=== PATIENT | male | born 1955 | race African-American/Black ===

== ENCOUNTER 2016-02-24 18:54 | Emergency (ER) | payer OTHER ==
[~2016-02-24] VITALS: Ht 180.3 cm; Wt 105.7 kg
[~2016-02-24 18:54] MED LIST: ALBU8.5H2 IH; HYDR-429 PO; HYDR12.55 PO; LISI10TA5 PO; QUET200T PO; QUET400T PO; TEMA15CA PO
[2016-02-24 19:13] LABS: BASOPHILS # (AUTO) 0.1 /CMM (0.0-0.2); BASOPHILS % (AUTO) 1.2 % (0.0-2.0); DIFF TOTAL % 100 %; EOSINOPHILS # (AUTO) 0.2 /CMM (0.0-0.7); EOSINOPHILS % (AUTO) 2.4 % (0.0-6.0); HEMATOCRIT 41 % (39-51); HEMOGLOBIN 13.3 g/dL (13.5-17.5); LYMPHOCYTES # (AUTO) 2.1 /CMM (0.8-4.8); LYMPHOCYTES % (AUTO) 21.2 % (20.0-44.0); MEAN CORPUSCULAR HEMOGLOBIN 27 PG (26.0-33.0); MEAN CORPUSCULAR HGB CONC 32 g/dl (31.0-36.0); MEAN CORPUSCULAR VOLUME 84 fL (80-96); MONOCYTES # (AUTO) 1.3 /CMM (0.1-1.30); MONOCYTES % (AUTO) 13.2 % (2.0-12.0); NEUTROPHILS # (AUTO) 6.4 /CMM (1.8-8.9); PLATELET COUNT (AUTO) 231 /CMM (150-450); WHITE BLOOD COUNT (AUTO) 10.1 K/uL (4.3-11.0)
[2016-02-24] MEDS ORDERED: ALBUTEROL FS 2.5 MG/0.5 ML VIAL.NEB ONE ×2 (19:14→21:10)
[2016-02-24] MEDS ORDERED: IPRATROPIUM NEB FS 0.5 MG/2.5 ML AMPUL.NEB ONE (19:14)
[2016-02-24 19:25] LABS: ANION GAP 11 (5-14); CALCIUM, SERUM 9.6 mg/dL (8.5-10.1); CARBON DIOXIDE 28 mmol/L (21-32); CHLORIDE 98 mmol/L (98-107); CREATININE 1.4 mg/dL (0.6-1.3); GFR 62 mL/min (>60); GLUCOSE 101 mg/dL (74-106); POTASSIUM 3.9 mmol/L (3.5-5.1); SODIUM SERUM 133 mmol/L (136-145); UREA NITROGEN, BLOOD 16 mg/dL (7-18)
[2016-02-24] MEDS ORDERED: predniSONE 20 MG TABLET ONE (19:25)
[2016-02-24 19:28] LABS: INR 0.99 (0.87-1.13); PROTHROMBIN TIME 10.4 SECS (9.5-12.7)
[2016-02-24] MEDS ORDERED: predniSONE 20 MG TABLET PO ONE (19:30)
[2016-02-24] MEDS ORDERED: IPRATROPIUM NEB FS 0.5 MG/2.5 ML AMPUL.NEB NEB ONE (19:30)
[2016-02-24] MEDS ORDERED: ALBUTEROL FS 2.5 MG/0.5 ML VIAL.NEB NEB ONE ×2 (19:30→21:30)
[2016-02-24 19:35] LABS: TROPONIN I < 0.017 ng/mL (0.00-0.056)
[2016-02-24 22:07] VITALS: BP 147/90
== END 2016-02-24 22:08 | disposition home or self-care (01) ==
LOC: ER 18:55
DX: J44.1 Chronic obstructive pulmonary disease with (acute) exacerbation (principal); I10 Essential (primary) hypertension; I25.2 Old myocardial infarction; Z88.6 Allergy status to analgesic agent; F17.210 Nicotine dependence, cigarettes, uncomplicated; F32.9 Major depressive disorder, single episode, unspecified
CPT/HCPCS: 36415; 71010; 80048; 83880; 84484; 85025; 85730; 93005; 94640 ×2; 99285; A4606; J7512; Z7610

== ENCOUNTER 2016-04-11 19:12 | Inpatient (IN) | payer OTHER ==
[~2016-04-11] VITALS: Ht 180.3 cm; Wt 104.8 kg
[~2016-04-11 19:12] MED LIST changes: -HYDR-429 PO; +HYDR-548 PO
[2016-04-11 19:55] LABS: BASOPHILS # (AUTO) 0.1 /CMM (0.0-0.2); BASOPHILS % (AUTO) 1.5 % (0.0-2.0); DIFF TOTAL % 100 %; EOSINOPHILS # (AUTO) 0.2 /CMM (0.0-0.7); EOSINOPHILS % (AUTO) 3.7 % (0.0-6.0); HEMATOCRIT 44 % (39-51); HEMOGLOBIN 13.9 g/dL (13.5-17.5); LYMPHOCYTES # (AUTO) 2.3 /CMM (0.8-4.8); LYMPHOCYTES % (AUTO) 43.3 % (20.0-44.0); MEAN CORPUSCULAR HEMOGLOBIN 27 PG (26.0-33.0); MEAN CORPUSCULAR HGB CONC 32 g/dl (31.0-36.0); MEAN CORPUSCULAR VOLUME 87 fL (80-96); MONOCYTES # (AUTO) 0.9 /CMM (0.1-1.30); MONOCYTES % (AUTO) 17.8 % (2.0-12.0); NEUTROPHILS # (AUTO) 1.8 /CMM (1.8-8.9); NEUTROPHILS % (AUTO) 33.7 % (43.0-81.0); PLATELET COUNT (AUTO) 233 /CMM (150-450); RED BLOOD CELL COUNT(AUTO) 5.08 MIL/uL (4.5-6.0); WHITE BLOOD COUNT (AUTO) 5.3 K/uL (4.3-11.0)
[2016-04-11] MEDS ORDERED: ALBUTEROL FS 2.5 MG/0.5 ML VIAL.NEB NEB ONE (20:00)
[2016-04-11] MEDS ORDERED: ALBUTEROL FS 2.5 MG/0.5 ML VIAL.NEB ONE (20:02)
[2016-04-11 20:12] LABS: ALANINE AMINOTRANSFERASE 26 U/L (12-78); ALBUMIN 3.1 g/dL (3.4-5.0); ANION GAP 10 (5-14); ASPARTATE AMINOTRANSFERASE 14 U/L (15-37); BILIRUBIN,TOTAL 0.2 mg/dL (0.2-1.0); CALCIUM, SERUM 8.5 mg/dL (8.5-10.1); CARBON DIOXIDE 30 mmol/L (21-32); CHLORIDE 101 mmol/L (98-107); CREATININE 1.2 mg/dL (0.6-1.3); GFR 74 mL/min (>60); GLUCOSE 92 mg/dL (74-106); POTASSIUM 3.7 mmol/L (3.5-5.1); SODIUM SERUM 137 mmol/L (136-145); TOTAL PROTEIN, SERUM 6.9 g/dL (6.4-8.2); UREA NITROGEN, BLOOD 15 mg/dL (7-18)
[2016-04-11 20:13] LABS: TROPONIN I < 0.017 ng/mL (0.00-0.056)
[2016-04-11 20:14] LABS: INDIRECT BILIRUBIN 0.2 mg/dL (0.0-1.1)
[2016-04-11 20:19] LABS: INR 0.95 (0.87-1.13)
[2016-04-11] MEDS ORDERED: MORPHINE SULFATE INJ 2 MG/ML DISP.SYRIN ONE (20:56)
[2016-04-11] MEDS ORDERED: MORPHINE SULFATE INJ 2 MG/ML DISP.SYRIN IV ONE (21:30)
[2016-04-11 22:00] VITALS: BP 125/79
[2016-04-11] MEDS ORDERED: ENOXAPARIN SODIUM 40 MG/0.4 ML DISP.SYRIN SQ SCH (22:00)
[2016-04-11] MEDS ORDERED: MAGNESIUM HYDROXIDE 30 ML UDC PO PRN (22:00)
[2016-04-11] MEDS ORDERED: MAG HYDROX/AL HYDROX/SIMETH 30 ML UDC PO PRN (22:00)
[2016-04-11] MEDS ORDERED: ACETAMINOPHEN 325 MG TABLET PO PRN (22:00)
[2016-04-11] MEDS ORDERED: Z GUARD REMEDY 2 OZ OINT TP PRN (22:00)
[2016-04-11] MEDS ORDERED: ONDANSETRON HCL/PF 4 MG/2 ML VIAL IVP PRN (22:00)
[2016-04-11] MEDS ORDERED: ENOXAPARIN SODIUM 40 MG/0.4 ML DISP.SYRIN SQ ONE (22:42)
[2016-04-12] VITALS (7 sets, daily range): BP systolic 125–144; BP diastolic 61–81
[2016-04-12] MEDS ORDERED: TEMAZEPAM 15 MG CAPSULE PO PRN (01:00)
[2016-04-12] MEDS ORDERED: ALBUTEROL SULFATE 8 GM HFA.AER.AD IH PRN (01:00)
[2016-04-12] MEDS: HYDROCODONE/APAP 5/325MG 1 EACH TABLET PO PRN ×2 (07:46→18:43)
[2016-04-12 07:50] LABS: BASOPHILS % (AUTO) 0.5 % (0.0-2.0); DIFF TOTAL % 100 %; EOSINOPHILS # (AUTO) 0.2 /CMM (0.0-0.7); EOSINOPHILS % (AUTO) 2.5 % (0.0-6.0); HEMATOCRIT 43 % (39-51); HEMOGLOBIN 13.9 g/dL (13.5-17.5); LYMPHOCYTES # (AUTO) 2.5 /CMM (0.8-4.8); LYMPHOCYTES % (AUTO) 33.4 % (20.0-44.0); MEAN CORPUSCULAR HEMOGLOBIN 28 PG (26.0-33.0); MEAN CORPUSCULAR HGB CONC 33 g/dl (31.0-36.0); MEAN CORPUSCULAR VOLUME 87 fL (80-96); MONOCYTES # (AUTO) 1.1 /CMM (0.1-1.30); MONOCYTES % (AUTO) 14.2 % (2.0-12.0); NEUTROPHILS # (AUTO) 3.7 /CMM (1.8-8.9); NEUTROPHILS % (AUTO) 49.4 % (43.0-81.0); PLATELET COUNT (AUTO) 223 /CMM (150-450); WHITE BLOOD COUNT (AUTO) 7.5 K/uL (4.3-11.0)
[2016-04-12 08:00] LABS: ALBUMIN 3.2 g/dL (3.4-5.0); BILIRUBIN,DIRECT 0.1 mg/dL (0.0-0.2); BILIRUBIN,TOTAL 0.3 mg/dL (0.2-1.0); CALCIUM, SERUM 8.2 mg/dL (8.5-10.1); CREATININE 1.3 mg/dL (0.6-1.3); INDIRECT BILIRUBIN 0.2 mg/dL (0.0-1.1); POTASSIUM 3.8 mmol/L (3.5-5.1); TOTAL PROTEIN, SERUM 6.9 g/dL (6.4-8.2)
[2016-04-12 08:08] LABS: THYROID STIMULATING HORMONE 0.781 uIU/mL (0.358-3.74)
[2016-04-12] MEDS ORDERED: REGADENOSON 0.4 MG/5 ML DISP.SYRIN IVP ONE (09:00)
[2016-04-12] MEDS: LISINOPRIL (10MG) 10 MG TABLET PO SCH (09:00)
[2016-04-12] MEDS ORDERED: ASPIRIN 81 MG TAB.CHEW PO SCH (09:00)
[2016-04-12] MEDS: MORPHINE SULFATE INJ 2 MG/ML DISP.SYRIN IV PRN ×2 (10:43→20:07)
[2016-04-12 12:09] LABS: EOSINOPHILS % (MANUAL) 6 % (0-4); LYMPHOCYTES % (MANUAL) 42 % (16-48); PLATELET ESTIMATE ADEQUATE
[2016-04-12] MEDS: Magnesium 1GM/D5W 100ML PREMIX 100 ML IV SCH ×2 (14:00→14:37)
[2016-04-12] MEDS: QUETIAPINE FUMARATE 100 MG TABLET PO SCH ×2 (14:37→17:36)
[2016-04-12] MEDS: HYDROCHLOROTHIAZIDE 25 MG TABLET PO SCH (14:37)
[2016-04-12] MEDS ORDERED: ENOXAPARIN SODIUM 40 MG/0.4 ML DISP.SYRIN SQ SCH (21:00)
[2016-04-12] MEDS ORDERED: QUETIAPINE FUMARATE 100 MG TABLET PO SCH (22:00)
[2016-04-13] MEDS: MORPHINE SULFATE INJ 2 MG/ML DISP.SYRIN IV PRN (06:50)
[2016-04-13 07:10] LABS: CALCIUM, SERUM 8.5 mg/dL (8.5-10.1); CREATININE 1.2 mg/dL (0.6-1.3); POTASSIUM 4.2 mmol/L (3.5-5.1)
[2016-04-13 08:00] VITALS: BP 121/85
[2016-04-13] MEDS: QUETIAPINE FUMARATE 100 MG TABLET PO SCH (08:59)
[2016-04-13] MEDS: LISINOPRIL (10MG) 10 MG TABLET PO SCH (08:59)
[2016-04-13] MEDS: HYDROCHLOROTHIAZIDE 25 MG TABLET PO SCH (09:00)
[2016-04-13 11:51] VITALS: BP 121/85
== END 2016-04-13 11:50 | DRG 203 ==
LOC: ER 19:13 → TELE 21:24 → MED 04-12 10:05
PROVIDERS: ADMIT Contractor; ATTEND Contractor
DX: M94.0 Chondrocostal junction syndrome [Tietze] (principal); I24.9 Acute ischemic heart disease, unspecified; I11.0 Hypertensive heart disease with heart failure; I50.32 Chronic diastolic (congestive) heart failure; F41.9 Anxiety disorder, unspecified; E44.1 Mild protein-calorie malnutrition; E83.42 Hypomagnesemia; I25.10 Atherosclerotic heart disease of native coronary artery without angina pectoris; Z95.5 Presence of coronary angioplasty implant and graft; E78.5 Hyperlipidemia, unspecified; I25.2 Old myocardial infarction; J44.9 Chronic obstructive pulmonary disease, unspecified; K21.9 Gastro-esophageal reflux disease without esophagitis; F32.9 Major depressive disorder, single episode, unspecified; F17.210 Nicotine dependence, cigarettes, uncomplicated; E11.9 Type 2 diabetes mellitus without complications
CPT/HCPCS: 36415; 71010-TC; 72020-TC; 80048-TC; 80061-TC; 80076-TC; 83735-TC; 84100-TC; 84443-TC; 84484-TC; 85025-TC; 85730-TC; 87081-TC; 93307-TC; A4606; A9502; J1650; J2270; J2785; J3475; Z7610

== ENCOUNTER 2016-10-24 22:45 | Inpatient (IN) | payer OTHER ==
[~2016-10-24] VITALS: Ht 180.3 cm; Wt 82.1 kg
--- NOTE | 2016-10-24 22:50 | NUR ---
61 YO BB RA FROM HOME. PT IS ALERT X 3, C/O SOB, GRADUAL ONSET ALL DAY. PT ASSISTED TO ER BED, SKIN WARM AND DRY, RR EVEN AND UNLABORED. PT GOWNED, PLACED ON PRISM INSPECTOR. NOTED WHEEZING ALL LOBES, TRIPODING. PT AWAITING ORDERS FROM PROVIDER
[2016-10-24] MEDS ORDERED: DEXAMETHASONE SOD PHOSPHATE 10 MG/ML VIAL ONE (22:52)
[2016-10-24] MEDS ORDERED: IPRATROPIUM NEB FS 0.5 MG/2.5 ML AMPUL.NEB ONE (22:54)
[2016-10-24] MEDS ORDERED: ALBUTEROL FS 2.5 MG/3 ML VIAL.NEB ONE (22:54)
--- NOTE | 2016-10-24 22:55 | NUR ---
STARTED BRETHING TREATMENT PER VERBAL ORDER MD FINK; 5MG ALBUTEROL, 0.5MG ATROVENT NEB
[2016-10-24] MEDS ORDERED: Magnesium 1GM/D5W 100ML PREMIX 200 ML IV ONE (22:58)
[2016-10-24] MEDS ORDERED: IPRATROPIUM NEB FS 0.5 MG/2.5 ML AMPUL.NEB NEB ONE (23:00)
[2016-10-24] MEDS ORDERED: ALBUTEROL FS 2.5 MG/3 ML VIAL.NEB NEB ONE (23:00)
[2016-10-24] MEDS ORDERED: DEXAMETHASONE SOD PHOSPHATE 10 MG/ML VIAL IV ONE (23:00)
[2016-10-24] MEDS ORDERED: Magnesium 1 GM/2 ML VIAL IV ONE (23:00)
--- NOTE | 2016-10-24 23:09 | NUR ---
BIPAP STARTED ORDERED; 15/5, 60%
--- NOTE | 2016-10-24 23:09 | NUR ---
MEDICATED PT ORDERED
[2016-10-24 23:13] LABS: BASOPHILS % (AUTO) 0.4 % (0.0-2.0); EOSINOPHILS # (AUTO) 0.2 /CMM (0.0-0.7); EOSINOPHILS % (AUTO) 2.9 % (0.0-6.0); HEMATOCRIT 43 % (39-51); LYMPHOCYTES # (AUTO) 2.8 /CMM (0.8-4.8); LYMPHOCYTES % (AUTO) 35.3 % (20.0-44.0); MEAN CORPUSCULAR HEMOGLOBIN 29 PG (26.0-33.0); MEAN CORPUSCULAR HGB CONC 33 g/dl (31.0-36.0); MEAN CORPUSCULAR VOLUME 88 fL (80-96); MONOCYTES # (AUTO) 0.9 /CMM (0.1-1.30); MONOCYTES % (AUTO) 11.9 % (2.0-12.0); NEUTROPHILS # (AUTO) 3.9 /CMM (1.8-8.9); NEUTROPHILS % (AUTO) 49.5 % (43.0-81.0); PLATELET COUNT (AUTO) 195 /CMM (150-450); RDW COEFFICIENT OF VARIATION 15.9 (11.5-15.0); RED BLOOD CELL COUNT(AUTO) 4.84 MIL/uL (4.5-6.0); WHITE BLOOD COUNT (AUTO) 7.9 K/uL (4.3-11.0)
[2016-10-24 23:18] VITALS: BP 128/81
[2016-10-24 23:25] LABS: CALCIUM, SERUM 8.3 mg/dL (8.5-10.1); CREATININE 1.1 mg/dL (0.6-1.3); POTASSIUM 3.7 mmol/L (3.5-5.1)
--- NOTE | 2016-10-24 23:31 | NUR ---
PT STATES HE FEEL BETTER AFTER BREATHING TREATMENT AND BIPAP. MD NOTIFIED
[2016-10-24 23:33] LABS: TROPONIN I 0.044 ng/mL (0.00-0.056)
--- NOTE | 2016-10-24 23:49 | NUR ---
VITAL SIGNS UPDATED.
[2016-10-25] VITALS (7 sets, daily range): BP systolic 108–137; BP diastolic 70–98
[2016-10-25] MEDS ORDERED: DOXYCYCLINE 100 MG VIAL ONE (00:25)
[2016-10-25] MEDS ORDERED: CLOPIDOGREL BISULFATE 75 MG TABLET ONE (00:25)
[2016-10-25] MEDS ORDERED: ONDANSETRON HCL/PF 4 MG/2 ML VIAL IVP PRN (00:30)
[2016-10-25] MEDS ORDERED: CLOPIDOGREL BISULFATE 75 MG TABLET PO ONE (00:30)
[2016-10-25] MEDS ORDERED: DOXYCYCLINE 100 MG in IV D5W 100 ML IV ONE (00:30)
[2016-10-25] MEDS ORDERED: LEVOFLOXACIN 750 MG /D5W 150ML 750 MG in PREMIX 1 EA IV SCH (00:30)
[2016-10-25] MEDS ORDERED: ACETAMINOPHEN 325 MG TABLET PO PRN (00:30)
--- NOTE | 2016-10-25 00:38 | NUR ---
medicated pt as ordered
--- NOTE | 2016-10-25 01:25 | NUR ---
transported pt to jennie bed without incident
--- NOTE | 2016-10-25 01:45 | NUR ---
HEAVY REPAIRER INITIAL NOTE RECEIVED PT FROM [facility] NURSE. ADMITTED TO ICU A RYAN OVERFLOW WITH A DX OF COPD EXACERBATION. PT IN BED. A/A/O X4. PT IS AMBULATORY TO BED. LUNG SOUNDS CLEAR, WITH 2L NC. ORIGINALLY ON BIPAP IN ER BUT WAS ABLE TO TOLERATE RA AFTER TREATMENTS PER ER NURSE. IV PATENT AND INTACT. CONTINENT TO URINE AND STOOL. SKIN INTACT. BED IN LOW LOCKED POSITION. CALL LIGHT WITHIN REACH. WILL CONTINUE TO MONITOR.
[2016-10-25] MEDS ORDERED: GUAIFENESIN LA 600 MG TABLET.SA PO ONE (02:03)
[2016-10-25] MEDS ORDERED: methylPREDNISolone SOD SUCC 40 MG/ML VIAL ONE (02:04)
[2016-10-25] MEDS ORDERED: LEVOFLOXACIN 750 MG /D5W 150ML 150 ML IV ONE (02:05)
[2016-10-25] MEDS ORDERED: ALBUTEROL FS 2.5 MG/0.5 ML VIAL.NEB ONE (02:08)
[2016-10-25] MEDS ORDERED: IPRATROPIUM NEB FS 0.5 MG/2.5 ML AMPUL.NEB ONE (02:09)
[2016-10-25] MEDS: IPRATROPIUM NEB FS 0.5 MG/2.5 ML AMPUL.NEB NEB SCH ×4 (02:10→19:51)
[2016-10-25] MEDS: ALBUTEROL FS 2.5 MG/0.5 ML VIAL.NEB NEB SCH ×4 (02:10→19:51)
[2016-10-25] MEDS: methylPREDNISolone SOD SUCC 125 MG/2ML VIAL IV SCH ×2 (02:21→09:02)
[2016-10-25] MEDS: GUAIFENESIN LA 600 MG TABLET.SA PO SCH ×3 (02:21→21:57)
[2016-10-25] MEDS ORDERED: HYDROCODONE/APAP 10/325MG 1 EA TABLET ONE (03:02)
[2016-10-25] MEDS: HYDROCODONE/APAP 10/325MG 1 EA TABLET PO PRN ×3 (03:03→18:13)
--- NOTE | 2016-10-25 06:20 | NUR ---
CONCRETE CRUSHER LOADER OPERATOR REPORT GIVEN TO NAYA GOMEZ FOR CONTINUITY OF CARE. PT STABLE FOR TRANSPORT. TRANSPORTED BY PASCUAL MENDIETA RN.
[2016-10-25] MEDS: HYDROCHLOROTHIAZIDE 25 MG TABLET PO SCH (09:07)
[2016-10-25] MEDS: LISINOPRIL (10MG) 10 MG TABLET PO SCH (09:08)
[2016-10-25] MEDS: QUETIAPINE FUMARATE 100 MG TABLET PO SCH ×2 (09:12→17:01)
[2016-10-25] MEDS ORDERED: LORAZEPAM 0.5 MG TABLET PO PRN (13:30)
[2016-10-25] MEDS ORDERED: FLUTICASONE/SALMETEROL DISKUS IH SCH (17:00)
[2016-10-25] MEDS: FLUTICASONE/VILANTEROL 1 EACH BLST.W.DEV IH SCH (17:01)
--- NOTE | 2016-10-25 19:30 | NUR ---
MS RN INITIAL NOTE PT RECEIVED SITTING UP ON SIDE OF BED. A/O X4 AND ABLE TO MAKE NEEDS KNOWN. ON ROOM AIR AND SATURATING WELL AT 98%. IV LFA #20 CLEAN, INTACT AND FLUSHING WELL. BREATHING EVEN AND UNLABORED AT THIS TIME. NO C/O PAIN NOTED. CALL LIGHT WITHIN REACH AT ALL TIMES. WILL CONTINUE TO MONITOR.
[2016-10-25] MEDS ORDERED: QUETIAPINE FUMARATE 100 MG TABLET PO SCH (22:00)
[2016-10-26] MEDS: IPRATROPIUM NEB FS 0.5 MG/2.5 ML AMPUL.NEB NEB SCH ×2 (01:23→07:35)
[2016-10-26] MEDS: ALBUTEROL FS 2.5 MG/0.5 ML VIAL.NEB NEB SCH ×2 (01:23→07:35)
[2016-10-26] MEDS ORDERED: LEVOFLOXACIN 750 MG /D5W 150ML 750 MG in PREMIX 1 EA IV SCH (02:00)
[2016-10-26] MEDS ORDERED: LEVOFLOXACIN (500MG) 500 MG TABLET PO SCH (02:00)
[2016-10-26 04:00] VITALS: BP 100/55
[2016-10-26 07:07] LABS: EOSINOPHILS % (AUTO) 0.3 % (0.0-6.0); HEMATOCRIT 40 % (39-51); HEMOGLOBIN 13.1 g/dL (13.5-17.5); LYMPHOCYTES # (AUTO) 2.9 /CMM (0.8-4.8); LYMPHOCYTES % (AUTO) 20.8 % (20.0-44.0); MEAN CORPUSCULAR HEMOGLOBIN 29 PG (26.0-33.0); MEAN CORPUSCULAR HGB CONC 33 g/dl (31.0-36.0); MEAN CORPUSCULAR VOLUME 88 fL (80-96); MONOCYTES # (AUTO) 0.2 /CMM (0.1-1.30); MONOCYTES % (AUTO) 1.5 % (2.0-12.0); NEUTROPHILS # (AUTO) 10.8 /CMM (1.8-8.9); NEUTROPHILS % (AUTO) 77.4 % (43.0-81.0); PLATELET COUNT (AUTO) 179 /CMM (150-450); RDW COEFFICIENT OF VARIATION 16.1 (11.5-15.0); RED BLOOD CELL COUNT(AUTO) 4.51 MIL/uL (4.5-6.0); WHITE BLOOD COUNT (AUTO) 13.9 K/uL (4.3-11.0)
[2016-10-26 07:19] LABS: ALBUMIN 2.7 g/dL (3.4-5.0); BILIRUBIN,TOTAL 0.2 mg/dL (0.2-1.0); CREATININE 0.9 mg/dL (0.6-1.3); POTASSIUM 3.9 mmol/L (3.5-5.1); TOTAL PROTEIN, SERUM 5.9 g/dL (6.4-8.2)
--- NOTE | 2016-10-26 07:29 | NUR ---
MS RN CLOSING NOTE PT REMAINED STABLE DURING SHIFT. ALL NEEDS ATTENDED TO PROMPTLY. KEPT CLEAN AND DRY. CALL LIGHT WITHIN REACH. WILL ENDORSE TO NEXT SHIFT FOR CONTINUITY OF CARE.
--- NOTE | 2016-10-26 07:59 | NUR ---
INITIAL NOTE RESTING IN BED, MAKES NEEDS KNOWN, A+OX4. BREATHIGNE JULIO AND UNLABORED, DENIES SOB AT REST. SOB ON EXERTION. 08/28 PAIN, GOAL 5- DISCUSSED PLAN TO MANAGE, VERBALIZED UNDERSTANDING. AMBULATORY. LFA IV C/D/I, NO INFILTRATION OR S/S OF INFECTION. REGULAR DIET. PULMO EVAL AND SPUTUM CX PLAN.
[2016-10-26 08:00] VITALS: BP 129/86
--- NOTE | 2016-10-26 08:42 | NUR ---
SEEN AND EXAMINED BY DR. GRAY AT THIS TIME
[2016-10-26] MEDS: FLUTICASONE/VILANTEROL 1 EACH BLST.W.DEV IH SCH (08:52)
[2016-10-26] MEDS: HYDROCODONE/APAP 10/325MG 1 EA TABLET PO PRN (08:53)
[2016-10-26] MEDS: HYDROCHLOROTHIAZIDE 25 MG TABLET PO SCH (08:53)
[2016-10-26] MEDS: LISINOPRIL (10MG) 10 MG TABLET PO SCH (08:54)
[2016-10-26] MEDS: GUAIFENESIN LA 600 MG TABLET.SA PO SCH (08:54)
[2016-10-26] MEDS: QUETIAPINE FUMARATE 100 MG TABLET PO SCH (08:57)
[2016-10-26] MEDS ORDERED: predniSONE 20 MG TABLET PO SCH (09:00)
--- NOTE | 2016-10-26 11:48 | NUR ---
Social service consult requested by PATRICIA Diaz. LARRY met with pt. bedside. Pt. is a 61 year old - [place] male who was admitted to [facility] for COPD Exacerbation. Pt. is alert and oriented x 4. Pt. informed SW, he would like to go to . A assumption homeless alf located at [address] [place] [address]. . Pt. states he would need bus tokens. SW informed pt. she will inform his PATRICIA Diaz to give him bus tokens at time of discharge. SW also gave pt. the following homeless resources: List of Homeless shelters which include A [place] homeless alf located at [address] [facility]. ; [facility], [address] [facility] [place] [address] , [facility], [address] [place] [address]. ; Food resources which include [facility] located at [address] [place] [address]; [facility], [address], [place] [id number] ; and Homeless Resource Directory which includes list of places that offer showers and hot meals, transitional and emergency housing and shelters etc. Homeless patient waiver form was signed by pt. and placed in pt's chart. PATRICIA Diaz was informed about discharge plan. No other social service needs are required at this time. SW is available if needed.
[2016-10-26 12:00] VITALS: BP 141/87
--- NOTE | 2016-10-26 12:42 | NUR ---
DISCHARGE NOTE INSTRUCTED PATIENT ON DZ PROCESS, MEDICATION/ RX AND HANDED RX ORDER FROM DR. COLLINS. PROVIDED HOSPITAL SUMMARY PAPER WORK. REMOVED IV, NO BLEEDING. PT AMBULATORY STEADY GAIT. NO SOB. PT VERBALIZED UNDERSTANDING OF EDUCATION AND PRECAUTIONS.
== END 2016-10-26 12:42 | disposition home or self-care (01) | DRG 291 ==
LOC: ER 22:50 → ICU 10-25 00:53 → TELE-TD 10-25 06:37 → MEDSG1 10-25 09:56
PROVIDERS: ADMIT Internal Medicine; ATTEND Internal Medicine
PROC: 5A09357 Assistance with Respiratory Ventilation, Less than 24 Consecutive Hours, Continuous Positive Airway Pressure (ICD-10-PCS; principal; 2016-10-24)
DX: I11.0 Hypertensive heart disease with heart failure (principal); J96.01 Acute respiratory failure with hypoxia; G93.1 Anoxic brain damage, not elsewhere classified; J44.1 Chronic obstructive pulmonary disease with (acute) exacerbation; E44.1 Mild protein-calorie malnutrition; I50.33 Acute on chronic diastolic (congestive) heart failure; E11.9 Type 2 diabetes mellitus without complications; E78.5 Hyperlipidemia, unspecified; F17.210 Nicotine dependence, cigarettes, uncomplicated; K21.9 Gastro-esophageal reflux disease without esophagitis; Z98.61 Coronary angioplasty status; E88.09 Other disorders of plasma-protein metabolism, not elsewhere classified; Z68.25 Body mass index [BMI] 25.0-25.9, adult; F32.9 Major depressive disorder, single episode, unspecified; F41.9 Anxiety disorder, unspecified; I25.2 Old myocardial infarction; J06.9 Acute upper respiratory infection, unspecified; F41.0 Panic disorder [episodic paroxysmal anxiety]; I25.10 Atherosclerotic heart disease of native coronary artery without angina pectoris
CPT/HCPCS: 36415; 71010-TC; 80048-TC; 80053-TC; 84484-TC; 85025-TC; 87081-TC; 87400; 94762-TC; A4216; A4606; A6402; J1100; J1956; J2920; J2930; J3475; J3490; J7060; Z7610